=== PATIENT | male | born 1945 | race Caucasian/White ===

== ENCOUNTER 2017-03-18 18:43 | Inpatient (IN) | payer MEDICARE, OTHER ==
[2017-03-18] MEDS ORDERED: NS 0.9% 1000 ML* 1,000 ML IV ONE (19:11)
[2017-03-18 19:30] LABS: ABS Basophils 0.1 10^3/ul (0-0.2); ABS Eosinophils 0 10^3/ul (0-0.6); ABS Lymphocytes 1.1 10^3/ul (1.0-4.8); ABS Monocytes 0.8 10^3/ul (0-0.8); ABS Nucleated RBC 0 10^3/ul; Eosinophil % 0.1 % (0-6); Hematocrit 41 % (42-52); Hemoglobin 14.3 g/dl (14.0-18.0); Lymphocyte % 9.6 % (25-47); Mean Corpuscular HGB Conc 35 g/dl (31-36); Mean Corpuscular Hemoglobin 36 pg (27-31); Mean Corpuscular Volume 104 fL (80-94); Mean Platelet Volume 8 um3 (7.4-10.4); Nucleated Red Blood Cells % 0; Platelet Count 260 10^3/ul (150-450); Red Blood Count 3.98 10^6/ul (4.0-5.4); Red Cell Distribution Width 14 % (10.5-15); White Blood Count 11.9 10^3/ul (3.5-10.8)
[2017-03-18 19:45] LABS: EGFR Non-African American 86.5 (>60)
[2017-03-18 19:49] LABS: INR 0.94 (0.77-1.02)
--- NOTE | 2017-03-18 20:13 | RAD ---
INDICATION: Acute neurologic changes COMPARISON: Chest x-ray dated February 25, 2013 TECHNIQUE: Single AP portable view of the chest was obtained. FINDINGS: Image quality is compromised due to the relative inferiority of a portable chest x-ray. The heart and mediastinum exhibit normal size and contour. At the mid-level lateral right lung there is a horizontally oriented dense line which could be a small amount of fluid in the minor fissure. The pulmonary vasculature appears mildly engorged and indistinct. There is no focal or lobar consolidation. Visualized bones are normal for the patient's age. IMPRESSION: In the correct clinical setting chest x-ray findings could be compatible with mild pulmonary edema.
--- NOTE | 2017-03-18 20:24 | RAD ---
INDICATION: Altered mental status COMPARISON: CT of the brain dated February 25, 2013 TECHNIQUE: Contiguous axial sections of the brain were obtained from the skull base to the vertex without contrast. FINDINGS: The ventricles, cisterns and sulci are within normal limits. There is encephalomalacia involving the right occipital lobe and the subcortical white matter tracts of the occipital and parietal lobes posteriorly. This appears to correspond to an area of hypodensity seen on the 2013 CT of the brain. Elsewhere there is mild periventricular and subcortical white matter hypoattenuation more consistent with chronic microvascular disease. Otherwise the santos-white matter differentiation is adequately maintained and there is no sulcal effacement. No significant focal abnormality or mass effect is present. There is no evidence for intracranial hemorrhage. No significant focal osseous abnormality is present. There are inspissated secretions partially visualized in the left maxillary sinus. The mastoid air cells are well aerated bilaterally. IMPRESSION: 1. Encephalomalacia involving the right posterior parietal and occipital lobes corresponding to hypodensity seen on the 2013 CT of the brain. If the patient is exhibiting focal neurologic deficits superior determination of CVA can be made with MRI of the brain. 2. Evidence of subcortical and periventricular microvascular disease.
[2017-03-18 22:02] LABS: Urine Appearance Cloudy; Urine Blood Negative (Negative); Urine Color Yellow; Urine Ketones Negative (Negative); Urine Protein 1+(30 mg/dL) (Negative); Urine Specific Gravity 1.025 (1.010-1.030); Urine Urobilinogen Negative (Negative)
[2017-03-18] MEDS ORDERED: Acetaminophen SUPP* 650 MG SUPP PR PRN (22:02)
[2017-03-18] MEDS ORDERED: Ondansetron INJ* 2 MG/ML VIAL IV PRN (22:04)
[2017-03-18] MEDS ORDERED: Labetalol IV* 5 MG/ML 20 ML VIAL IV PUSH PRN ×2 (22:05→22:07)
[2017-03-18] MEDS ORDERED: Aspirin SUPP* 300 MG PR ONE (22:10)
[2017-03-18] MEDS ORDERED: NS 0.9% 1000 ML* 1,000 ML IV SCH (22:15)
--- NOTE | 2017-03-18 23:20 | HP ---
H&P (Free Text) History and Physical: PCP: Vilma Hoyos MD Date/Time: 03/18/[id number] CC: fall, AMS HPI: Mr Ivan is a 71YO male who is unable to give a history, but whose son is present. He has a HX CVA & HLD who was at his baseline when going to bed 03/17. However, upon awakening 03/18 he fell attempting to get out of bed and was unable to produce speech. His girlfriend with whom he lives assisted him downstairs where he fell out of a chair. She continued to assist him throughout the day finally calling his son around 1800 who advised her to call 911 to which she replied, "What's the number?" PMedHx CVA HLD urolithiasis Ambulatory Orders Nursing to reconcile. 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; DNR/I code status FamHx: positive for CAD, HTN, CHF ROS: as above, otherwise reviewed and all were negative vitals: Vital Signs Temp 38.2 C 03/18/17 22:25 Pulse 86 03/18/17 22:25 Resp 16 03/18/17 22:25 BP 163/83 03/18/17 22:25 Pulse Ox 93 03/18/17 22:25 Intake & Output 03/17/17 03/18/17 03/18/17 23:59 11:59 23:59 Intake Total 1000 Balance 1000 Weight 90.718 kg Intake: IV Fluids 1000 Constitutional: NAD, normally developed, obese white male HEENM: atraumatic; sclera/conjunctiva: anicteric/clear; hearing: clinically intact; oropharynx: clear, mucosa moist Neck: soft tissue: non-tender; thyroid: normal Pulmonary: clear to auscultation bilaterally, good aeration, no accessory muscle use CV: RR/RR, normal S1S2, no carotid bruit, no jugular venous distention, 2+ B DP/ PT, no edema Abdominal: soft, non-distended, non-tender, no rebound/guarding/rigidity, normoactive bowel sounds, no hepatosplenomegaly or masses, no costovertebral angle tenderness Musculoskeletal: general: grossly intact, no tenderness w/ palpation Integumental: normal appearance and texture of exposed skin Neurological cranial nerves II: unable to assess visual theodore 2nd patient ability to comply w/ exam III/IV/: symmetric light reflex, leftward gaze VII: mild R facial droop VIII: hearing unable to be assessed IX/X: symmetric palatal motion, no dysarthria XII: unablt to assesss tongue protrusion, normal voice articulation motor LUE: 4/5 proximally, distally, & umbrella tipper machine strength RUE: 3-/5 proximally, distally, & umbrella tipper machine strength LLE: 4/5 proximally & distally RLE: 3/5 proximally & distally coordination finger/nose: unable to obtain heal/posada: unable to obtain dysdiadochokinesia: unable to obtain sensory crude touch: difficult to assess, seemingly decreased R Psychiatric orientation: AA&O to person only affect: calm mood: irritable eye contact: poor content: unreliable responses: slowed insight: poor Testing: Lab Results 03/18/17 03/18/17 03/18/17 Range/Units 19:20 19:20 19:20 WBC 11.9 H (3.5-10.8) 10^3/ul RBC 3.98 L (4.0-5.4) 10^6/ul Hgb 14.3 (14.0-18.0) g/dl Hct 41 L (42-52) % MCV 104 H (80-94) fL MCH 36 H (27-31) pg MCHC 35 (31-36) g/dl RDW 14 (10.5-15) % Plt Count 260 (150-450) 10^3/ul MPV 8 (7.4-10.4) um3 Neut % (Auto) 83.3 H (38-83) % Lymph % (Auto) 9.6 L (25-47) % [place] % (Auto) 6.3 (1-9) % Eos % (Auto) 0.1 (0-6) % Baso % (Auto) 0.7 (0-2) % Absolute Neuts (auto) 10.0 H (1.5-7.7) 10^3/ul Absolute Lymphs (auto) 1.1 (1.0-4.8) 10^3/ul Absolute Monos (auto) 0.8 (0-0.8) 10^3/ul Absolute Eos (auto) 0 (0-0.6) 10^3/ul Absolute Basos (auto) 0.1 (0-0.2) 10^3/ul Absolute Nucleated RBC 0 10^3/ul Nucleated RBC % 0 INR (Anticoag Therapy) 0.94 (0.77-1.02) APTT 25.4 L (26.0-36.3) seconds Sodium 135 (133-145) mmol/L Potassium 4.1 (3.5-5.0) mmol/L Chloride 101 (101-111) mmol/L Carbon Dioxide 27 (22-32) mmol/L Anion Gap 7 (2-11) mmol/L BUN 15 (6-24) mg/dL Creatinine 0.87 (0.67-1.17) mg/dL Est GFR ( Amer) 111.2 (>60) Est GFR (Non-Af Amer) 86.5 (>60) BUN/Creatinine Ratio 17.2 (8-20) Glucose 127 H (70-100) mg/dL Lactic Acid (0.5-2.0) mmol/L Calcium 9.6 (8.6-10.3) mg/dL Total Bilirubin 1.30 H (0.2-1.0) mg/dL AST 29 (13-39) U/L ALT 36 (7-52) U/L Alkaline Phosphatase 57 (34-104) U/L Total Creatine Kinase Pending Troponin I 0.01 (<0.04) ng/mL Total Protein 7.3 (6.4-8.9) g/dL Albumin 4.0 (3.2-5.2) g/dL Globulin 3.3 (2-4) g/dL Albumin/Globulin Ratio 1.2 (1-3) Triglycerides 96 mg/dL Cholesterol 182 mg/dL LDL Cholesterol 102 mg/dL HDL Cholesterol 60.4 mg/dL Urine Color Urine Appearance Urine pH (5-9) Ur Specific [place] (1.010-1.030) Urine Protein (Negative) Urine Ketones (Negative) Urine Blood (Negative) Urine Nitrate (Negative) Urine Bilirubin (Negative) Urine Urobilinogen (Negative) Ur Leukocyte Esterase (Negative) Urine WBC (Auto) (Absent) Urine RBC (Auto) (Absent) Amorphous Crystals (Absent) Urine Bacteria (Absent) Urine Glucose (Negative) Influenza A (Rapid) (Negative) Influenza B (Rapid) (Negative) Blood Type Antibody Screen 03/18/17 03/18/17 03/18/17 Range/Units 19:20 19:20 21:40 WBC (3.5-10.8) 10^3/ul RBC (4.0-5.4) 10^6/ul Hgb (14.0-18.0) g/dl Hct (42-52) % MCV (80-94) fL MCH (27-31) pg MCHC (31-36) g/dl RDW (10.5-15) % Plt Count (150-450) 10^3/ul MPV (7.4-10.4) um3 Neut % (Auto) (38-83) % Lymph % (Auto) (25-47) % [place] % (Auto) (1-9) % Eos % (Auto) (0-6) % Baso % (Auto) (0-2) % Absolute Neuts (auto) (1.5-7.7) 10^3/ul Absolute Lymphs (auto) (1.0-4.8) 10^3/ul Absolute Monos (auto) (0-0.8) 10^3/ul Absolute Eos (auto) (0-0.6) 10^3/ul Absolute Basos (auto) (0-0.2) 10^3/ul Absolute Nucleated RBC 10^3/ul Nucleated RBC % INR (Anticoag Therapy) (0.77-1.02) APTT (26.0-36.3) seconds Sodium (133-145) mmol/L Potassium (3.5-5.0) mmol/L Chloride (101-111) mmol/L Carbon Dioxide (22-32) mmol/L Anion Gap (2-11) mmol/L BUN (6-24) mg/dL Creatinine (0.67-1.17) mg/dL Est GFR ( Amer) (>60) Est GFR (Non-Af Amer) (>60) BUN/Creatinine Ratio (8-20) Glucose (70-100) mg/dL Lactic Acid 1.4 (0.5-2.0) mmol/L Calcium (8.6-10.3) mg/dL Total Bilirubin (0.2-1.0) mg/dL AST (13-39) U/L ALT (7-52) U/L Alkaline Phosphatase (34-104) U/L Total Creatine Kinase Troponin I (<0.04) ng/mL Total Protein (6.4-8.9) g/dL Albumin (3.2-5.2) g/dL Globulin (2-4) g/dL Albumin/Globulin Ratio (1-3) Triglycerides mg/dL Cholesterol mg/dL LDL Cholesterol mg/dL HDL Cholesterol mg/dL Urine Color Yellow Urine Appearance Cloudy Urine pH 5.0 (5-9) Ur Specific [place] 1.025 (1.010-1.030) Urine Protein 1+(30 mg/dl) H (Negative) Urine Ketones Negative (Negative) Urine Blood Negative (Negative) Urine Nitrate Negative (Negative) Urine Bilirubin Negative (Negative) Urine Urobilinogen Negative (Negative) Ur Leukocyte Esterase Negative (Negative) Urine WBC (Auto) Trace(0-5/hpf) (Absent) Urine RBC (Auto) Absent (Absent) Amorphous Crystals Present H (Absent) Urine Bacteria Absent (Absent) Urine Glucose Negative (Negative) Influenza A (Rapid) (Negative) Influenza B (Rapid) (Negative) Blood Type A Negative Antibody Screen Negative 03/18/17 Range/Units 22:01 WBC (3.5-10.8) 10^3/ul RBC (4.0-5.4) 10^6/ul Hgb (14.0-18.0) g/dl Hct (42-52) % MCV (80-94) fL MCH (27-31) pg MCHC (31-36) g/dl RDW (10.5-15) % Plt Count (150-450) 10^3/ul MPV (7.4-10.4) um3 Neut % (Auto) (38-83) % Lymph % (Auto) (25-47) % [place] % (Auto) (1-9) % Eos % (Auto) (0-6) % Baso % (Auto) (0-2) % Absolute Neuts (auto) (1.5-7.7) 10^3/ul Absolute Lymphs (auto) (1.0-4.8) 10^3/ul Absolute Monos (auto) (0-0.8) 10^3/ul Absolute Eos (auto) (0-0.6) 10^3/ul Absolute Basos (auto) (0-0.2) 10^3/ul Absolute Nucleated RBC 10^3/ul Nucleated RBC % INR (Anticoag Therapy) (0.77-1.02) APTT (26.0-36.3) seconds Sodium (133-145) mmol/L Potassium (3.5-5.0) mmol/L Chloride (101-111) mmol/L Carbon Dioxide (22-32) mmol/L Anion Gap (2-11) mmol/L BUN (6-24) mg/dL Creatinine (0.67-1.17) mg/dL Est GFR ( Amer) (>60) Est GFR (Non-Af Amer) (>60) BUN/Creatinine Ratio (8-20) Glucose (70-100) mg/dL Lactic Acid (0.5-2.0) mmol/L Calcium (8.6-10.3) mg/dL Total Bilirubin (0.2-1.0) mg/dL AST (13-39) U/L ALT (7-52) U/L Alkaline Phosphatase (34-104) U/L Total Creatine Kinase Troponin I (<0.04) ng/mL Total Protein (6.4-8.9) g/dL Albumin (3.2-5.2) g/dL Globulin (2-4) g/dL Albumin/Globulin Ratio (1-3) Triglycerides mg/dL Cholesterol mg/dL LDL Cholesterol mg/dL HDL Cholesterol mg/dL Urine Color Urine Appearance Urine pH (5-9) Ur Specific [place] (1.010-1.030) Urine Protein (Negative) Urine Ketones (Negative) Urine Blood (Negative) Urine Nitrate (Negative) Urine Bilirubin (Negative) Urine Urobilinogen (Negative) Ur Leukocyte Esterase (Negative) Urine WBC (Auto) (Absent) Urine RBC (Auto) (Absent) Amorphous Crystals (Absent) Urine Bacteria (Absent) Urine Glucose (Negative) Influenza A (Rapid) Negative (Negative) Influenza B (Rapid) Negative (Negative) Blood Type Antibody Screen ECG, personally reviewed: NSR rate 92, no ischemia CXR, personally reviewed: IMPRESSION: In the correct clinical setting chest x- ray findings could be compatible with mild pulmonary edema. CT brain WO, personally reviewed: IMPRESSION: 1. Encephalomalacia involving the right posterior parietal and occipital lobes corresponding to hypo- density seen on the 2013 CT of the brain. If the patient is exhibiting focal neurologic deficits superior determination of CVA can be made with MRI of the brain. 2. Evidence of subcortical and periventricular microvascular disease. Impression: 71M HX CVA & HLD presents with subacute L MCA distribution CVA DIAGNOSIS & PLAN Primary subacute L MCA distribution CVA : telemetry : NPO : aspirin MN : MRI in AM : ECHO in AM : CTA head/neck : PT/OT/ST evaluations in AM : supplemental oxygen : acetaminophen MN PRN fever : Augusto Chavez MD neurology consulted, will evaluate in AM : supportive care Secondary HLD : low fat diet if/when able to take PO again Admission Rational: inpatient for subacute CVA w/ significant deficits DVTp: SCDs & heparin SQ Code Status: full HCP: sonGabriel
[2017-03-19] MEDS ORDERED: Iohexol 350* (CONTRAST) 500 ML MDV IV ONE ×2 (01:15→07:59)
[2017-03-19] MEDS: Heparin VIAL(*) 5000 UNITS/ML VIAL (FIVE THOUSAND) SUBCUT SCH ×2 (06:13→13:25)
[2017-03-19 06:39] LABS: ABS Basophils 0.1 10^3/ul (0-0.2); ABS Eosinophils 0 10^3/ul (0-0.6); ABS Lymphocytes 1.7 10^3/ul (1.0-4.8); ABS Monocytes 0.8 10^3/ul (0-0.8); ABS Neutrophils 5.7 10^3/ul (1.5-7.7); ABS Nucleated RBC 0 10^3/ul; Eosinophil % 0.5 % (0-6); Hematocrit 36 % (42-52); Hemoglobin 12.5 g/dl (14.0-18.0); Lymphocyte % 20.8 % (25-47); Mean Corpuscular HGB Conc 35 g/dl (31-36); Mean Corpuscular Hemoglobin 36 pg (27-31); Mean Corpuscular Volume 103 fL (80-94); Mean Platelet Volume 8 um3 (7.4-10.4); Nucleated Red Blood Cells % 0; Platelet Count 196 10^3/ul (150-450); Red Blood Count 3.48 10^6/ul (4.0-5.4); Red Cell Distribution Width 14 % (10.5-15); White Blood Count 8.3 10^3/ul (3.5-10.8)
[2017-03-19 06:52] LABS: EGFR Non-African American 91.3 (>60)
[2017-03-19] MEDS ORDERED: Thiamine IV* 100 MG, Folic Acid IV* 1 MG, Multiple Vitamin IV ADULT* 10 ML in NS 0.9% 1... IV ONE (08:16)
[2017-03-19] MEDS ORDERED: Aspirin SUPP* 300 MG PR SCH (09:00)
[2017-03-19] MEDS ORDERED: Pantoprazole IV* 40 MG IV SCH (09:00)
[2017-03-19] MEDS ORDERED: Perflutren Lipid Microsphere* 3 ML VIAL ONE (09:22)
--- NOTE | 2017-03-19 12:00 | CONS ---
CC: Sharmila Hoyos MD * CONSULTATION REPORT: DATE OF CONSULT: 03/19/17 ADMITTING PHYSICIAN: Herb Mcgovern MD. ATTENDING PHYSICIAN: Junior Dickens MD. PRIMARY CARE PHYSICIAN: Sharmila Hoyos MD. REASON FOR CONSULTATION: Right-sided weakness. HISTORY OF PRESENT ILLNESS: Mr. Ivan is a 71-year-old gentleman who reportedly has a history of prior stroke, his previous CT scan from 02/25/13, I did review the film, is suspicious for an infarct within the distribution of the right posterior cerebral artery. At that time, he had a brain MRI, which confirmed the large amount of hemorrhagic and acute infarct in the right posterior cerebral artery vascular territory. At that time, his neck MRA showed mild atherosclerotic changes. No hemodynamically significant stenosis. His head MRA showed occlusion of the right posterior cerebral artery at the origin of the P2 segment. At the time, he was treated for stroke. It was noted that he had confusion and unstable gait 2 days prior to admission. He also had some headache, intractable nausea and vomiting for several hours. At that time, he was discharged on aspirin 81 mg daily and Lipitor. The patient states that he had another stroke sometime after that in which he had right hand tingling, but I see no documentation of that in the chart. The patient was brought to the ER yesterday. History is scant. The patient is a poor historian , but apparently per the son yesterday, he went to bed on 03/17/17 in his normal state of health at baseline. When he woke up yesterday morning, he fell trying to get out of bed and had difficulty producing speech. Per the ER H and P, his girlfriend helped him downstairs where he fell out of the chair and tried to assist him throughout the day, but he did not improve. He was subsequently brought to the ER. I received a call from the ER physician last night. Apparently at that time, the patient had a NIH stroke scale of 13. He was unable to give the ER doctor much history and was "aphasic" at the time. Brain CT done last night was reviewed by me, I agree with findings. It shows the old stroke in the right posterior parietoccipital lobes consistent with his prior imaging in 2013, some atrophy and white matter disease noted as well, but no new strokes were apparent. I did speak with the admitting physician. The patient was made n.p.o., advised to give aspirin rectally. Given the findings in the ER, suggested keeping his blood pressure on the higher end and not treating aggressively. He was being admitted for stroke workup with plan for MRI and CT angiogram, echocardiogram today. I reviewed nursing records overnight. When he was brought to the floor, he was unable to speak for himself and was confused. This morning when I went in to see him, he was awake , he was answering questions appropriately. He denied any problems and states he does not feel weak on the right side, again somewhat of a poor historian. He did remember his stroke in 2012 and had a vague recollection of TIA or stroke sometime afterwards, but did not know the date. He does state that he was taking his aspirin and statin at home, but it is unclear how compliant he is. Of note, he does state that he drinks "moderate" amounts of whiskey everyday. He states that his last drink was last night. Apparently, he states he does drink everyday. Denies any withdrawal symptoms in the past. He currently denies any pain, headache, vision problems. He denies any swallowing problems. No focal numbness, tingling, or weakness. He states that he feels it is baseline. He has had no new issues overnight. PAST MEDICAL HISTORY: Includes prior stroke, hypercholesterolemia. PAST SURGICAL HISTORY: Includes Achilles repair and left knee repair after an injury. MEDICATIONS: Home medications per the hospital record, Cialis 50 mg at bedtime p.r.n. He also states that he takes aspirin at home and atorvastatin. Current medications include: 1. Tylenol 650 mg p.o. q. 6 hours p.r.n. for fever/pain. 2. Aspirin 300 mg daily p.r. 3. Heparin 5000 subcu q. 8 hours. 4. Trandate 20 mg IV push q. 2 hours p.r.n. systolic blood pressure greater than 200, diastolic greater than 105. 5. Zofran p.r.n. 6. Protonix 40 daily. ALLERGIES: No known drug allergies. FAMILY HISTORY: Significant for coronary artery disease, CHF, and hypertension. SOCIAL HISTORY: He denies tobacco use. No drug use. Lives with his girlfriend. 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 He does admit to alcohol use as noted above. REVIEW OF SYSTEMS: Review of systems in 14-organ systems as noted above, otherwise negative. PHYSICAL EXAM: Temp of 100.7 last night, currently 98.0. Pulse in the 60s to 80s, respiratory rate 16, O2 saturation 93% to 97%. In general, he is a well- nourished, slightly disheveled gentleman in no acute distress, lying in his hospital bed. He is awake. He is pleasant with me this morning. HEENT: He is normocephalic, atraumatic. Sclerae area anicteric. He has cataracts bilaterally. Mucous membranes are moist. He has poor dentition. Neck is supple. No thyromegaly. No carotid bruits. No meningismus. Chest: Clear to auscultation bilaterally. Cardiovascular: Regular rate and rhythm. No murmurs. Abdomen: Nontender, nondistended. Extremities: No clubbing, cyanosis or edema. Skin: Warm and dry, and he appears somewhat disheveled. Neurologic: He is awake, alert. He is oriented to person, [place], [place]. He thought it was 1916, then 1917. He knew it was March, did not know the day or date. He knew the president name was Loc. He is aware of his current condition, although he is unclear about how he got here and unclear about the details yesterday. He does not remember waking up yesterday and being brought to the hospital. Cranial nerves: Pupils were equal and reactive to light. Extraocular muscles are intact. Visual theodore are full to confrontation. His face is symmetric. Sensation is intact. Tongue is midline. Oropharynx: His palate raises symmetrically. His sternocleidomastoid and trapezius 5/5. Hearing is intact bilaterally, a difficult exam. Motor exam: He is spontaneously moving all extremities antigravity. He has good resistance 5/5 throughout. He does have some minimal drift in the right upper and right lower extremities after 5 or 6 seconds. No drift on the left side. DTRs are 1+ and symmetric in the upper extremities, 1+ at the patella bilaterally, trace at the ankles bilaterally. He withdraws to Babinski bilaterally. Sensation is intact to light touch and pinprick. He has no neglect on the right or left side. [id number] and rapid alternating movements were intact, slower on the right than the left, but no tremors were noted. Tone and bulk are both normal. Gait was not tested at this time. DIAGNOSTIC STUDIES/LAB DATA: Lab work includes a white count of 8.3 this morning, down from 11.9 yesterday. Hemoglobin of 12.5, hematocrit of 36. Lymphocyte count of 20.8, monocyte of 9.5. INR of 0.94. PTT of 24.5. His basic metabolic panel this morning was normal except for glucose of 105. Complete metabolic panel yesterday showed a glucose of 127, total bili of of 1.30, otherwise normal. Triglycerides of 96, cholesterol of 182, LDL of 102, HDL of 60.4. Urine showed 1+ protein and amorphous crystals present. Influenza A and B were negative. CT scan of the head as noted above. ASSESSMENT AND PLAN: Mr. Ivan is a 71-year-old gentleman with a prior history of a right sided posterior circulation stroke with CT findings consistent, went to bed on the 15 in his usual state of health, woke up on the 16th, apparently fell out of bed, was weak and aphasic throughout the day and was brought to the ER last night where a CT scan was done and showed no new acute issues but findings consistent with his stroke in 2012. The patient states that he does take an aspirin and atorvastatin at home, although it is unclear how reliable he is. He does note what appears to be heavy drinking daily, last drink is reported last night, it is unclear when his last drink was. Overnight , the patient seems to have improved. He is more awake, alert. He is responding and following commands, has some very subtle drift on the right but overall his examination is less focal than last night. His speech does not appear dysarthric. There is no aphasia noted. At this point, the concern is that he may have had a left-sided stroke given his presentation last night, although with his dramatic recovery, TIA would be in the differential. In addition, acute intoxication would certainly be in the differential as well, causing confusion delirium. At this point, we will continue his stroke workup, 1. MRI of the brain. 2. CTA of the head and neck. 3. Echocardiogram. 4. Continue his aspirin p.r. for now. 5. He is n.p.o., follow up with speech evaluation and advance diet as appropriate. I do think he has improved and will likely be able to tolerate diet today. 6. Continue statin once he is able to take p.o. 7. For now, we will allow blood pressure to ride on the higher end with labetalol p.r.n. 8. I am going to stop his normal saline and start banana bag normal saline with folic acid, multivitamin and thiamine given his history of drinking. We will watch closely for any evidence of withdrawal including autonomic instability, confusion, tremors. He is now afebrile. The etiology of his fever last night is unclear, but my suspicion for underlying infection is low. 9. We will get Physical Therapy to evaluate him as well. 10. We will need close followup as an outpatient to ensure that he is compliant with his medications. I will continue to follow him closely and make further recommendations as necessary. Thank you for the opportunity to participate in the care of this very interesting patient. [id number]/[facility] #: [id number] SUSAN
--- NOTE | 2017-03-19 12:04 | RAD ---
HISTORY: Stroke workup COMPARISONS: , Confusion head CT dated August 16, 2017 TECHNIQUE: Multiple contiguous axial CT scans were obtained of the head and neck After the administration of nonionic intravenous contrast timed to the systemic arterial phase of contrast enhancement. Coronal and sagittal multiplanar reformations are submitted for review. Multiple 3-D maximum intensity projection reconstructions are also submitted for review. FINDINGS: CTA NECK: AORTIC ARCH: There is a normal three-vessel branching pattern of the aortic arch. There is no ostial or proximal stenosis of the cephalic great vessels. RIGHT VERTEBRAL ARTERY: The right vertebral artery is patent along its course, without stenosis. LEFT VERTEBRAL ARTERY: The left vertebral artery is patent along its course, without stenosis. DOMINANCE: The left vertebral artery is dominant. RIGHT COMMON CAROTID ARTERY: The right common carotid artery is patent. The right carotid bifurcation occurs at C3-C4 RIGHT INTERNAL CAROTID ARTERY: There is atheromatous disease of the right carotid bifurcation, without right internal carotid artery stenosis by NASCET criteria. RIGHT EXTERNAL CAROTID ARTERY: The right external carotid artery is unremarkable. LEFT COMMON CAROTID ARTERY: The left common carotid artery is patent. The left carotid bifurcation occurs at C3-C4 LEFT INTERNAL CAROTID ARTERY: There is atheromatous disease of the left carotid bifurcation, without left internal carotid artery stenosis by NASCET criteria. LEFT EXTERNAL CAROTID ARTERY: The left external carotid artery is unremarkable. VENOUS CIRCULATION: The venous system is unremarkable. SALIVARY GLANDS: The parotid glands, submandibular glands, sublingual glands are normal. NASAL CAVITY/NASOPHARYNX: The nasal cavity and nasopharynx are normal. ORAL CAVITY/OROPHARYNX: The oral cavity is obscured by streak artifact from dental amalgam. The visualized oral cavity and oropharynx are unremarkable. LARYNGEAL APPARATUS/HYPOPHARYNX: The laryngeal apparatus and hypopharynx are normal. UPPER AIRWAY/UPPER ESOPHAGUS: The visualized upper airway and esophagus are normal. LUNG APICES: The lung apices are clear. THYROID GLAND: The thyroid gland is normal. LYMPH NODES: There is no lymphadenopathy by size criteria. BONES AND SOFT TISSUES: Degenerative changes are noted along the spine. CTA HEAD: INTRACRANIAL CIRCULATION: There is no aneurysm, vascular malformation, occlusion, or stenosis of the visualized intracranial circulation. The anterior communicating artery complex is clear. Bilateral posterior communicating arteries are identified. VENOUS CIRCULATION: The venous system is unremarkable. PERFUSION: There is no obvious parenchymal perfusion deficit. HEMORRHAGE/INFARCT: There is no hemorrhage or acute infarct. MASSES/SHIFT: There is no mass or shift. EXTRA-AXIAL SPACES: There are no extra-axial fluid collections. SULCI AND VENTRICLES: The sulci and ventricles are normal in size and position for the patient's stated age. CEREBRUM: There is hypoattenuation of the periventricular and subcortical white matter. There is right occipital encephalomalacia consistent with remote infarct. BRAINSTEM: There are no focal parenchymal abnormalities. CEREBELLUM: There are no focal parenchymal abnormalities. PARANASAL SINUSES: The paranasal sinuses are clear. ORBITS: The orbits are unremarkable. BONES AND SOFT TISSUE: No bone or soft tissue abnormalities are noted. OTHER: There is no abnormal enhancement. IMPRESSION: 1. ATHEROMATOUS DISEASE. 2. NO INTERNAL CAROTID ARTERY STENOSIS BY NASCET CRITERIA. 3. NO ANEURYSM, VASCULAR MALFORMATION, OCCLUSION, OR STENOSIS OF THE VISUALIZED INTRACRANIAL CIRCULATION. CPT II Codes: 3100F
--- NOTE | 2017-03-19 12:29 | RAD ---
HISTORY: Stroke workup COMPARISONS: PET CT dated March 18, 2017, MRI dated February 25, 2013 TECHNIQUE: The following sequences were obtained of the head: Sagittal T1-weighted images, axial T2-weighted images, axial FLAIR images, axial susceptibility weighted images, axial T1-weighted images. Additionally, axial diffusion-weighted images were obtained with calculated apparent diffusion coefficients. FINDINGS: The study is limited by patient motion artifact. HEMORRHAGE/INFARCT: There is no hemorrhage or acute infarct. MASSES/SHIFT: There is no mass or shift. EXTRA-AXIAL SPACES/MENINGES: There are no extra-axial fluid collections. SULCI AND VENTRICLES: The sulci and ventricles are normal in size and position for the patient's stated age. CEREBRUM: There is inseparable malacia of the right mesial temporal and occipital lobes consistent with remote infarct. There is elevated T2/FLAIR signal in the periventricular and subcortical white matter. BRAINSTEM: There is a chronic lacunar infarct of the left jeremías. CEREBELLUM: There are no focal parenchymal abnormalities. The cerebellar tonsils are normal in size and position. SELLA: The sella is normal. PINEAL: The pineal region is clear. CP ANGLE/TEMPORAL BONES: The labyrinthine structures are grossly normal. VESSELS: Normal flow-voids are noted within the visualized vertebral vasculature. DIFFUSION ABNORMALITIES: There are no diffusion abnormalities. PARANASAL SINUSES/MASTOIDS: The paranasal sinuses are clear. ORBITS: The orbits are unremarkable. BONES AND SOFT TISSUE: No bone or soft tissue abnormalities are noted. OTHER: None IMPRESSION: 1. RIGHT TEMPORAL AND OCCIPITAL AND CEPHALIZATION CONSISTENT WITH REMOTE INFARCT. 2. ELEVATED T2/FLAIR SIGNAL IN THE PERIVENTRICULAR AND SUBCORTICAL WHITE MATTER CONSISTENT WITH CHRONIC SMALL VESSEL ISCHEMIA. 3. THERE IS A CHRONIC LACUNAR INFARCT OF THE LEFT JEREMÍAS. 4. NO RESTRICTED DIFFUSION TO SUGGEST ACUTE INFARCT
[2017-03-19 13:05] VITALS: BP 132/74
--- NOTE | 2017-03-20 02:32 | DS ---
DISCHARGE SUMMARY: DATE OF ADMISSION: 03/18/17 DATE OF DISCHARGE: 03/19/17 ATTENDING PHYSICIAN: Guilherme Mariee MD * (dictated by Jane Carrero NP). PRIMARY CARE PROVIDER: Sharmila Hoyos MD. PRIMARY DIAGNOSES: 1. Possible transient ischemic attack. 2. Possible acute alcohol intoxication with delirium. SECONDARY DIAGNOSES: 1. Cerebrovascular accident. 2. Hyperlipidemia. 3. Urolithiasis. STUDIES WHILE IN THE HOSPITAL: He had a chest x-ray on 03/18/17, radiologist impression: "In the correct clinical setting, chest x-ray findings could be compatible with mild pulmonary edema. The patient is not short of breath and does not have any rhonchi or rales. He had an electrocardiogram done on , which showed sinus rhythm with a rate of 92." He had a CT of the brain on 03/18/17, radiologist impression: 1. Encephalomalacia involving the right posterior parietal and occipital lobes corresponding to hyperdensities seen on 2013 CT of the brain. If the patient is exhibiting focal neurologic deficits, superior determination of CVA can be made with an MRI of the brain. 2. Evidence of subcortical and periventricular microvascular disease. He had an MRI of the brain on 03/19/17, radiologist impression: 1. Right temporal and occipital encephalization consistent with remote infarct. 2. Elevation in T2/FLAIR signal in the periventricular and subcortical white matter consistent with chronic small vessel ischemia. 3. There is a chronic lunar infarct of the left aleksandr. 4. No restricted diffusion to suggest acute infarct. CTA of the head, radiologist impression: There is atheromatous disease. No internal carotid artery stenosis by NASCET criteria. No aneurysm, vascular malformations, occlusion or stenosis of the visualized intracranial circulation. DISCHARGE MEDICATIONS: He will be discharged home, new medication: 1. Atorvastatin 40 mg p.o. daily. Continued home medications: 1. Aspirin 81 mg p.o. daily. 2. Cialis 50 mg p.o. at bedtime as needed. HISTORY OF PRESENT ILLNESS AND HOSPITAL COURSE: Mr. Ivan is a 71-year-old male who was originally unable to give history, but his son was present. He has a history of CVA and high cholesterol who was at his baseline when going to bed on 03/17/17; however, upon waking on 03/18/17, he fell attempting to get out of bed and was unable to produce speech. His girlfriend with whom he lives assisted him down the stairs where he fell out of a chair. She continued to assist him throughout the day and finally calling son around 1800 who advised her to call 911 and she replied "what's the number." Initially the patient was unable to comply with the neurological exam. Visual theodore were unable to be accessed. He did have some right facial droop. While in the hospital, he had an MRI of the brain. He had an echocardiogram which showed no significant change since 2012 except for some mild left ventricular hypertrophy. He had a CTA of the head and neck. He was able to ambulate around the unit with no assistance and the gait was steady. He is alert and oriented x3. He is able to follow all commands. He has no focal neurological deficits at this time. His handgrips are equal. His tongue is midline. His speech is clear. He is moving all 4 extremities. The MRI was negative for an acute infarct. The patient does report during his interview that he drinks approximately 2 L of whiskey a week. The patient was not observed to have any withdrawal symptoms while in the hospital. At this time, Mr. Ivan is stable for discharge home today. Vital Signs: Blood pressure 132/74, heart rate is 60, respirations 18, O2 saturation is 96% on room air, temp was 97.9 orally. DISCHARGE PLAN: Mr. Ivan will be discharged back home with his family. Activity as tolerated. He should continue on a heart healthy diet. I have advised him to stop drinking alcohol as this may have caused some of his presenting symptoms. I will increase his atorvastatin to 40 mg p.o. daily. For followup, the patient should follow up with his primary care provider. 1. Follow up with primary care provider in 4 to 7 days. 2. Follow up with Mark Chavez from Neurology in 1 month. The patient was advised to return to the emergency room for any chest pain, shortness of breath. He was also advised to return to the emergency room for any one-sided weakness, delirium, unable to get out of bed, slurred speech. The patient and son and girlfriend verbalized understanding. This is a summary of report of his medical stay. For further details, please see the entire medical record. TIME SPENT: Time spent on this discharge was approximately 60 minutes, greater than half that time was spent with the patient and family discussing discharge plans and instructions. CONDITION ON DISCHARGE: Stable. JANE CARRERO NP [id number]/[facility] #: [id number] SUSAN
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
== END 2017-03-19 18:35 | disposition home or self-care (01) | DRG 69 ==
LOC: ED 18:43 → MEDTELE 21:47
PROVIDERS: ADMIT Hospitalist; ATTEND Internal Medicine
DX: G45.9 Transient cerebral ischemic attack, unspecified (principal); F10.121 Alcohol abuse with intoxication delirium; G93.89 Other specified disorders of brain; E78.5 Hyperlipidemia, unspecified; N52.9 Male erectile dysfunction, unspecified; Z66 Do not resuscitate; Y90.9 Presence of alcohol in blood, level not specified; R40.2422 Glasgow coma scale score 9-12, at arrival to emergency department; R29.713 NIHSS score 13; Z82.49 Family history of ischemic heart disease and other diseases of the circulatory system; Z86.73 Personal history of transient ischemic attack (TIA), and cerebral infarction without residual deficits; Z87.442 Personal history of urinary calculi; Z72.89 Other problems related to lifestyle; Z79.82 Long term (current) use of aspirin
CPT/HCPCS: 36415; 70450; 70496; 70498; 70551; 71045; 80048; 80053; 80061; 81003; 81015; 82550; 82607; 82746; 83090; 83605; 84439; 84443; 84484; 85025; 85610; 85730; 86038; 86850; 86900; 86901; 87040; 87502; 93005; 93306; 99283; A9270-GY; C8929; J1644; J3411; Q9967